=== PATIENT | male | born 1985 | race African-American/Black ===

== ENCOUNTER 2019-11-30 16:22 | Emergency (ER) | payer MEDICAID ==
[~2019-11-30] VITALS: Ht 180.3 cm; Wt 91.6 kg
--- NOTE | 2019-11-30 16:45 | NUR ---
ED Nurse Note: PT walked in to ed requesting a STD check. pt reports having 2 partners who had vaginal discharges with foul odor. PT currently denies any STD symptoms.
[2019-11-30 16:47] VITALS: BP 123/72
--- NOTE | 2019-11-30 16:55 | Emergency Room Report ---
History of Present Illness General Chief Complaint: Male Urogenital Problems Source: Patient Present Illness HPI 33-year-old male with no significant past medical history here complaining of a possible exposure to STD. Patient denies any penile discharge, pruritus, scrotal pain or swelling, dysuria, urinary frequency urgency or hematuria. Reports that he was sexually active a few days ago with 2 girls who "complain of vaginal discharge and reported that they were diagnosed with some sort of "bacterial infection.". Patient is requesting treatment for chlamydia, gonorrhea, and trichomoniasis. Denies any foul odor. Denies all other associated symptoms. Is aware that we routinely do not test for sexually transmitted diseases and is interested in getting referrals to clinics he can ge t tested for different types of sexually transmitted diseases. Allergies: Coded Allergies: No Known Allergies (Unverified , 11/30/19) COVID-19 Screening Contact w/high risk pt: No Experienced COVID-19 symptoms?: No COVID-19 Testing performed [employer]: No Patient History Past Medical History: see triage record Past Surgical History: none Pertinent Family History: none Reviewed Nursing Documentation: PMH: Agreed; PSxH: Agreed Nursing Documentation-PMH Past Medical History: No History, Except For Hx Cardiac Problems: No - IBS Review of Systems All Other Systems: negative except mentioned in HPI Physical Exam Vital Signs Date Time Temp Pulse Resp B/P (MAP) Pulse Ox O2 Delivery O2 Flow Rate FiO2 11/30/19 16:39 98.1 66 18 123/72 (89) 94 Room Air Sp02 EP Interpretation: reviewed, normal General Appearance: no apparent distress, alert, GCS 15, non-toxic Head: normocephalic, atraumatic Eyes: bilateral eye normal inspection, bilateral eye PERRL ENT: hearing grossly normal, normal pharynx, no angioedema, normal voice Neck: full range of motion, supple/symm/no masses Respiratory: chest non-tender, lungs clear, normal breath sounds, speaking full sentences Cardiovascular #1: regular rate, rhythm, no edema Gastrointestinal: normal bowel sounds, non tender, soft, non-distended, no guarding, no rebound Genitourinary: no CVA tenderness Musculoskeletal: back normal Neurologic: alert, motor strength/tone normal, oriented x3, sensory intact, responsive, speech normal Psychiatric: judgement/insight normal, memory normal, mood/affect normal, no suicidal/homicidal ideation Skin: no rash Lymphatic: no adenopathy Medical Decision Making PA Attestation is and treatment plans were discussed and reviewed by my supervising physician Dr. Felton Diagnostic Impression: Primary Impression: Possible exposure to STD ER Course 33-year-old male with no significant past medical history here complaining of a possible exposure to STD. Patient denies any penile discharge, pruritus, scrotal pain or swelling, dysuria, urinary frequency urgency or hematuria. R eports that he was sexually active a few days ago with 2 girls who "complain of vaginal discharge and reported that they were diagnosed with some sort of "bacterial infection.". Patient is requesting treatment for chlamydia, gonorrhea, and trichomoniasis. Denies any foul odor. Denies all other associated symptoms. Is aware that we routinely do not test for sexually transmitted diseases and is interested in getting referrals to clinics he can get tested for different types of sexually transmitted diseases. Ddx considered but are not limited to: UTI, chlamydia, Gonorrhea, symphysis, HIV, herpes 1 or 2 Vital signs: are WNL, pt. is afebrile H&PE are most consistent with : Possible exposure to STD ORDERS: flagyl ED INTERVENTIONS: Rocephin IM, Azithromycin PO DISCHARGE: At this time pt. is stable for d/c to home. Will provide printed patient care instructions, and any necessary prescriptions. Care plan and follow up instructions have been discussed with the patient prior to discharge.take medication as directed, avoid alcohol while on flagyl, condom use advised, follow up with primary care provider, if worsening symptoms return to ED Last Vital Signs Date Time Temp Pulse Resp B/P (MAP) Pulse Ox O2 Delivery O2 Flow Rate FiO2 11/30/19 16:47 98.1 66 18 123/72 94 Room Air Disposition: HOME, SELF-CARE Condition: Stable Scripts Metronidazole* (FLAGYL*) 500 Mg Tablet 2 TAB ORAL BID for 1 Day, #4 TAB Prov: Alejandro Wiggins 11/30/19 Patient Instructions: Chlamydia, Male, Gonorrhea, Trichomoniasis Additional Instructions: Take medication as directed, follow primary care provider, worsening symptoms return to the emergency room Alejandro Wiggins Nov 30, 2019 16:55
[2019-11-30] MEDS ORDERED: METRONIDAZOLE500 MG ORAL (16:56)
[2019-11-30] MEDS ORDERED: Lidocaine 1% MPF 10mg/ml 5ml INJ ONE (17:00)
[2019-11-30] MEDS ORDERED: Azithromycin 250mg tab ORAL ONE (17:00)
[2019-11-30 17:10] VITALS: BP 120/76
--- NOTE | 2019-11-30 17:10 | NUR ---
ER DISCHARGE NOTE: Patient is cleared to be discharged per ERMD, pt is aox4, on room air, with stable vital signs. pt was given dc and prescription instructions, pt was able to verbalize understanding, pt id band removed without complications. pt is able to ambulate with steady gait. pt took all belongings.
== END 2019-11-30 17:10 | disposition home or self-care (01) ==
LOC: EMR 16:52
DX: Z20.2 Contact with and (suspected) exposure to infections with a predominantly sexual mode of transmission (principal); K58.9 Irritable bowel syndrome, unspecified
CPT/HCPCS: 96372; J0696; Q0144; Z7502; 99283